=== PATIENT | female | born 2000 | race Caucasian/White ===

== ENCOUNTER → 2022-08-04 | Outpatient (CLI) | LOC: M SOG 08:13 | PROVIDERS: ATTEND Physician Assistant | DX: Z53.9 Procedure and treatment not carried out, unspecified reason (principal) ==

== ENCOUNTER 2022-10-19 16:48 | Emergency (ER) | payer OTHER, SELFPAY ==
[~2022-10-19] VITALS: Ht 177.8 cm; Wt 82.4 kg
[2022-10-19 17:33] LABS: BASO % 0.1 % (0.0-1.0); HEMATOCRIT 38.4 % (36.0-47.0); HEMOGLOBIN 13.4 g/dl (12.0-15.5); LYMPH # 0.2 10^3/uL (1.5-5.0); LYMPH % 2.7 % (24.0-44.0); MEAN CORPUSCULAR HEMOGLOBIN 30.9 pg (27.0-33.0); MEAN CORPUSCULAR HGB CONC 34.9 g/dl (32.0-36.5); MEAN CORPUSCULAR VOLUME 88.7 fl (80.0-96.0); MONO # 0.4 10^3/uL (0.0-0.8); NEUTROPHILS # 8.1 10^3/uL (1.5-8.5); NEUTROPHILS % 92.7 % (36.0-66.0); PLATELET COUNT, AUTOMATED 228 10^3/uL (150-450); RED BLOOD COUNT 4.33 10^6/uL (4.00-5.40); WHITE BLOOD COUNT 8.8 10^3/uL (4.0-10.0)
[2022-10-19] MEDS ORDERED: NS 1,000 ML IV ONE (17:35)
[2022-10-19] MEDS ORDERED: ONDANSETRON 4MG 2ML VIAL IV ONE ×2 (17:35→20:20)
[2022-10-19 18:00] LABS: ALBUMIN 3.4 G/DL (3.2-5.2); BILIRUBIN,DIRECT 0.1 MG/DL (<0.4); BILIRUBIN,TOTAL 0.4 MG/DL (0.3-1.2); TOTAL PROTEIN 6.8 G/DL (5.7-8.2)
[2022-10-19] MEDS ORDERED: ACETAMINOPHEN TAB 650MG DOSE (2X325MG) PO ONE (19:05)
[2022-10-19 19:27] VITALS: BP 124/58
[2022-10-19] MEDS ORDERED: SUCRALFATE SUSP 1GM/10ML UD PO ONE (20:00)
[2022-10-19] MEDS ORDERED: POTASSIUM CHLORIDE 10MEQ SR TABLET PO ONE (20:00)
[2022-10-19] MEDS ORDERED: ONDA4TAB6 PO (20:16)
== END 2022-10-19 20:34 | disposition home or self-care (01) ==
LOC: M ED 16:48
DX: O99.612 Diseases of the digestive system complicating pregnancy, second trimester (principal); R11.2 Nausea with vomiting, unspecified; R19.7 Diarrhea, unspecified; E86.0 Dehydration; Z86.14 Personal history of Methicillin resistant Staphylococcus aureus infection
CPT/HCPCS: 80047; 80076; 81001; 83690; 85025; 87486; 87581; 87633; 87798; 96374; 96376; 99284; J2405

== ENCOUNTER 2022-12-01 10:49 | Outpatient (CLI) | payer OTHER ==
[~2022-12-01] VITALS: Ht 177.8 cm; Wt 84.4 kg
[~2022-12-01 10:49] MED LIST: ONDA4TAB6 PO
[2022-12-01] MEDS ORDERED: MULTTAB20 PO (11:31)
[2022-12-01 11:42] VITALS: BP 145/72
[2022-12-01 11:58] VITALS: BP 137/63
[2022-12-01 14:03] LABS: GC DNA AMPLIFICATION NEGATIVE (NEGATIVE)
== END 2022-12-01 12:36 | disposition home or self-care (01) ==
LOC: M LDO 10:49
PROVIDERS: ATTEND Registered Nurse
DX: O23.592 Infection of other part of genital tract in pregnancy, second trimester (principal); B37.31 Acute candidiasis of vulva and vagina; Z3A.21 21 weeks gestation of pregnancy
CPT/HCPCS: 87086; 87661; 87810; 87850; G0463

== ENCOUNTER 2022-12-29 12:36 | Emergency (ER) | payer OTHER ==
[~2022-12-29] VITALS: Ht 177.8 cm; Wt 86.3 kg
[~2022-12-29 12:36] MED LIST changes: +MULTTAB20 PO
[2022-12-29 12:37] VITALS: BP 119/62; TEMP 98.3; O2SAT 99
== END 2022-12-29 15:25 | disposition home or self-care (01) ==
LOC: M ED 12:36
DX: O26.892 Other specified pregnancy related conditions, second trimester (principal); M62.831 Muscle spasm of calf; Z3A.25 25 weeks gestation of pregnancy

== ENCOUNTER 2023-03-04 11:07 | Outpatient (CLI) | payer OTHER ==
[~2023-03-04] VITALS: Ht 177.8 cm; Wt 86.4 kg
[2023-03-04] MEDS ORDERED: TUMS500C PO (11:24)
[2023-03-04 11:29] VITALS: BP 123/74
[2023-03-04] MEDS ORDERED: HOME MED LIST COMPLETE! XX SCH (11:40)
[2023-03-04] MEDS ORDERED: FLUCONAZOLE 50MG TABLET PO ONE (12:45)
== END 2023-03-04 13:02 | disposition home or self-care (01) ==
LOC: M LDO 11:07
PROVIDERS: ATTEND Advanced Practice Midwife
DX: O26.893 Other specified pregnancy related conditions, third trimester (principal); N89.8 Other specified noninflammatory disorders of vagina; R25.2 Cramp and spasm; Z3A.34 34 weeks gestation of pregnancy
CPT/HCPCS: 59025; G0463

== ENCOUNTER → 2023-03-23 | Outpatient (CLI) | payer OTHER ==
[~2023-03-23] MED LIST changes: +TUMS500C PO
== END ==
LOC: M RAD 07:14
PROVIDERS: ATTEND Obstetrics & Gynecology
DX: O26.849 Uterine size-date discrepancy, unspecified trimester (principal); R62.51 Failure to thrive (child); Z3A.36 36 weeks gestation of pregnancy

== ENCOUNTER 2023-04-03 07:42 | Inpatient (IN) | payer OTHER ==
[~2023-04-03] VITALS: Ht 177.8 cm; Wt 87.7 kg
[2023-04-03] VITALS (10 sets, daily range): BP systolic 123–143; BP diastolic 56–87; O2SAT 97–98
[2023-04-03] MEDS ORDERED: AMPICILLIN SOD 2 GM in D5W MINI-BAG PLUS 100 ML IV STA (08:06)
[2023-04-03] MEDS ORDERED: LACTATED RINGER'S 1000 ML IV STA (08:06)
[2023-04-03] MEDS ORDERED: LR 1,000 ML IV SCH (08:10)
[2023-04-03] MEDS ORDERED: OXYTOCIN DRIP 30 UNITS in IV 1 EA IV PRN ×6 (08:10)
[2023-04-03] MEDS ORDERED: METHYLERGONOVINE MALEATE 0.2MG/ML 1ML VIAL IM PRN (08:10)
[2023-04-03] MEDS ORDERED: CARBOPROST TROMETHAMINE 250 MCG/ML AMP IM PRN (08:10)
[2023-04-03] MEDS ORDERED: OXYTOCIN INJ 10UNITS/ML 1ML VIAL IV PRN (08:10)
[2023-04-03] MEDS ORDERED: TRANEXAMIC ACID INJection 1,000 MG in NS 100 ML IV PRN (08:10)
[2023-04-03] MEDS ORDERED: OXYTOCIN INJ 10UNITS/ML 1ML VIAL IM PRN (08:10)
[2023-04-03] MEDS ORDERED: LIDOCAINE 1% MDV 20ML VIAL INFIL PRN (08:10)
[2023-04-03 09:30] LABS: HEMATOCRIT 40.3 % (36.0-47.0); HEMOGLOBIN 13.4 g/dl (12.0-15.5); MEAN CORPUSCULAR HGB CONC 33.3 g/dl (32.0-36.5); MEAN CORPUSCULAR VOLUME 90.4 fl (80.0-96.0); PLATELET COUNT, AUTOMATED 265 10^3/uL (150-450); RED BLOOD COUNT 4.46 10^6/uL (4.00-5.40)
[2023-04-03] MEDS ORDERED: FENTANYL/ROPIVACAINE/NACL BAG 100 ML EPIDURAL SCH (10:15)
[2023-04-03] MEDS ORDERED: EPIDURAL/PCA KEYS XX PRN (10:15)
[2023-04-03] MEDS ORDERED: ONDANSETRON 4MG 2ML VIAL IV PRN ×2 (10:15→11:30)
[2023-04-03] MEDS ORDERED: ePHEDrine SULFATE 25 MG/5 ML(5MG/ML) SYRINGE IVP PRN (10:15)
[2023-04-03] MEDS ORDERED: LR 500 ML IV PRN (10:15)
[2023-04-03] MEDS ORDERED: NALOXONE INJ 0.4MG/1ML VIAL IV PRN (10:15)
[2023-04-03] MEDS ORDERED: diphenhydrAMINE 50MG/ML VIAL IV PRN (10:15)
[2023-04-03] MEDS ORDERED: LIDOCAINE 1% MDV 20ML VIAL IM ONE (11:25)
[2023-04-03] MEDS ORDERED: OXYTOCIN DRIP 30 UNITS in IV 1 EA IV SCH ×4 (11:30)
[2023-04-03] MEDS ORDERED: MOM 30ML SUSPENSION UDC PO PRN (11:30)
[2023-04-03] MEDS ORDERED: DIBUCAINE 1% OINTMENT 30GM TOP PRN (11:30)
[2023-04-03] MEDS ORDERED: METHYLERGONOVINE MALEATE 0.2 MG TAB PO PRN (11:30)
[2023-04-03] MEDS ORDERED: DOCUSATE SODIUM 100MG CAPSULE PO PRN (11:30)
[2023-04-03] MEDS ORDERED: RHOGAM 300MCG (1500IU) INJ IM SCH (11:30)
[2023-04-03] MEDS ORDERED: ANUSOL HC CREAM 30GM TOP PRN (11:30)
[2023-04-03] MEDS ORDERED: ACETAMINOPHEN 500 MG TAB PO PRN (11:30)
[2023-04-03] MEDS ORDERED: IBUPROFEN 800 MG TAB PO PRN (11:30)
[2023-04-03] MEDS: LR 1,000 ML IV SCH ×2 (11:30→16:27)
[2023-04-03] MEDS: PRENATAL VITAMINS CHEWABLE TABLET PO SCH (12:48)
[2023-04-03] MEDS ORDERED: AMPICILLIN SOD 1 GM in D5W MINI-BAG PLUS 50 ML IV SCH (13:00)
[2023-04-03] MEDS: ACETAMINOPHEN TAB 650MG DOSE (2X325MG) PO PRN (16:28)
[2023-04-03] MEDS: IBUPROFEN 600MG TAB PO PRN (20:33)
[2023-04-04 06:01] VITALS: BP 116/70; O2SAT 97
[2023-04-04] MEDS: PRENATAL VITAMINS CHEWABLE TABLET PO SCH (08:04)
[2023-04-04] MEDS: ACETAMINOPHEN TAB 650MG DOSE (2X325MG) PO PRN (08:07)
[2023-04-04 18:00] VITALS: BP 125/66; O2SAT 97
[2023-04-05] MEDS: IBUPROFEN 600MG TAB PO PRN (00:58)
[2023-04-05 06:00] VITALS: BP 122/67; O2SAT 98
[2023-04-05] MEDS: PRENATAL VITAMINS CHEWABLE TABLET PO SCH (08:23)
[2023-04-05] MEDS ORDERED: MEASLES,MUMPS,RUBELLA VACCINE INJ (MMR-II) SC.IMMUN ONE (09:00)
== END 2023-04-05 13:15 | disposition home or self-care (01) | DRG 807 ==
LOC: M LDO 07:42 → M LDI 08:13 → M OBS 13:33
PROVIDERS: ADMIT Obstetrics & Gynecology; ATTEND Obstetrics & Gynecology
PROC: 10E0XZZ Delivery of Products of Conception, External Approach (ICD-10-PCS; principal; 2023-04-03)
PROC: 0HQ9XZZ Repair Perineum Skin, External Approach (ICD-10-PCS; 2023-04-03)
DX: O62.3 Precipitate labor (principal); Z37.0 Single live birth; Z3A.39 39 weeks gestation of pregnancy; O99.824 Streptococcus B carrier state complicating childbirth; O70.0 First degree perineal laceration during delivery; O26.13 Low weight gain in pregnancy, third trimester

== ENCOUNTER 2023-04-10 14:12 | Emergency (ER) | payer OTHER ==
[~2023-04-10] VITALS: Ht 177.8 cm; Wt 84.1 kg
[2023-04-10] MEDS ORDERED: METOCLOPRAMIDE INJ 10MG/2ML VIAL IV ONE (16:40)
[2023-04-10] MEDS ORDERED: NS 1,000 ML IV ONE (16:40)
[2023-04-10] MEDS ORDERED: diphenhydrAMINE 50MG/ML VIAL IV ONE (16:40)
[2023-04-10] MEDS ORDERED: dexAMETHasone 20MG/5ML VIAL IV ONE (16:40)
[2023-04-10 17:34] LABS: BASO % 0.3 % (0.0-1.0); EOS # 0.1 10^3/uL (0.0-0.5); EOS % 1.2 % (0.0-3.0); HEMATOCRIT 37.2 % (36.0-47.0); HEMOGLOBIN 12.1 g/dl (12.0-15.5); LYMPH % 19.9 % (24.0-44.0); MEAN CORPUSCULAR HEMOGLOBIN 29.8 pg (27.0-33.0); MEAN CORPUSCULAR HGB CONC 32.5 g/dl (32.0-36.5); MEAN CORPUSCULAR VOLUME 91.6 fl (80.0-96.0); MONO # 0.5 10^3/uL (0.0-0.8); MONO % 5.3 % (2.0-8.0); NEUTROPHILS # 7.4 10^3/uL (1.5-8.5); NEUTROPHILS % 72.9 % (36.0-66.0); PLATELET COUNT, AUTOMATED 387 10^3/uL (150-450); RED BLOOD COUNT 4.06 10^6/uL (4.00-5.40); WHITE BLOOD COUNT 10.1 10^3/uL (4.0-10.0)
[2023-04-10 17:41] LABS: ERYTHROCYTE SEDIMENTATION RATE 55 mm/hr (0-20)
[2023-04-10 18:19] VITALS: BP 106/63; TEMP 98.2; O2SAT 98
== END 2023-04-10 18:31 | disposition home or self-care (01) ==
LOC: M ED 14:12
DX: R51.9 Headache, unspecified (principal)
CPT/HCPCS: 70450; 80047; 85025; 85652; 86140; 96361; 96374; 99284; J2765